=== PATIENT | male | born 1990 | race Hispanic/Latino ===

== ENCOUNTER 2018-05-05 18:51 | Emergency (ER) | payer OTHER ==
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
[2018-05-05] MEDS ORDERED: TETANUS & DIPHTHERIA TOX,ADULT 0.5 ML VIAL ONE (19:34)
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
[2018-05-05] MEDS ORDERED: LIDOCAINE 1% 20 ML MDV ONE (20:57)
[2018-05-05] MEDS ORDERED: DERMABOND SKIN ADHESIVE TOP ONE (21:04)
[2018-05-05] MEDS ORDERED: BUPIVACAINE 0.5% PF 10 ML VIAL ONE (21:06)
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
[2018-05-05] MEDS ORDERED: KETOROLAC 30 MG/ML INJ ONE (21:56)
== END 2018-05-05 22:22 | disposition home or self-care (01) ==
LOC: ER 18:51
PROC: 0JQ10ZZ Repair Face Subcutaneous Tissue and Fascia, Open Approach (ICD-10-PCS; principal; 2018-05-05)
PROC: 0JQ00ZZ Repair Scalp Subcutaneous Tissue and Fascia, Open Approach (ICD-10-PCS; 2018-05-05)
DX: S02.2XXA Fracture of nasal bones, initial encounter for closed fracture (principal); S01.01XA Laceration without foreign body of scalp, initial encounter; S01.81XA Laceration without foreign body of other part of head, initial encounter; W22.8XXA Striking against or struck by other objects, initial encounter; Y93.89 Activity, other specified; Y92.149 Unspecified place in prison as the place of occurrence of the external cause; Z23 Encounter for immunization; F17.210 Nicotine dependence, cigarettes, uncomplicated
CPT/HCPCS: 70450; 70486; 71045; 72125; 76377; 90714; 96374; 99285